=== PATIENT | female | born 1995 | race Caucasian/White ===

== ENCOUNTER 2019-04-30 11:22 | Emergency (ER) | payer SELFPAY ==
--- OUTSIDE RECORDS SUMMARY | 2019-04-30 11:24 | XMS REPORT ---
:1995 [facility] Address [address] [place] [address] [address]. [address] [place] [address] Care Team Providers Name Role Phone Unavailable Unavailable Unavailable Payers Payer Name Policy Type Policy Number Effective Date Expiration Date Problems This patient has no known problems. Allergies, Adverse Reactions, Alerts Allergy Allergy Status Severity Reaction(s) Onset Inactive Treating Comments Name Type Date Date Clinician latex DA Active MO 2016-12 00:00:0 0 Medications This patient has no known medications. Results Test Description Test Time Test Comments Text Results Atomic Results Result Comments - CT ABD PELVIS W/CONT 2019-01-24 20:46:00 Name: LADI ARMSTRONG [facility] : 1995 Age/S: 23 / F [address] Unit #: [id number] Loc: [place] [address] Phys: Cornelius Mullins MD Acct: [id number] Dis Date: Status: REG ER PHONE #: [phone] Exam Date: 01/24/20192039 FAX #: Reason: epigastric, RUQ pain/tenderness EXAMS: CPT: [id number] CT ABD PELVIS W/CONT 96259 Location of dictation: B2 CT of the abdomen and pelvis with intravenous contrast CLINICAL HISTORY: Pain, nausea vomiting and diarrhea Contrast -100 mL of Isovue-300 IV contrast was given. No oral contrast was given Contrast phase - abdomen and pelvis including all of kidneys Reconstructions - coronal and sagittal planes GFR greater than 60 Automated exposure reduction (Auto mA/Smart mA) was utilized in compliance with ACR Image Wisely with DLP of 1329.9 mGy-cm. COMPARISON: None FINDINGS: Thoracic: Included images of the lower chest demonstrate no abnormalities. Hepatobiliary: Fatty liver with no focal mass. Gallbladder: Appears normal without biliary dilatation. Pancreas: Normal. Spleen: Normal. Adrenals: Normal. Genitourinary: The kidneys are normal. There is no evidence of hydronephrosis of either kidney. There is no evidence of renal calculus. The bladder is intact. Gastrointestinal: Moderate constipation. Normal appendix with no inflammatory change, small bowel obstruction or free air. The abdominal wall is intact. Retroperitoneum and pelvis: No adnexal mass, free fluid or fluid collection. Bladder is unremarkable. Bones and soft tissues: Intact with no focal findings. IMPRESSION: Unremarkable CT of the abdomen and pelvis with contrast. PAGE 1 Signed Report (CONTINUED) Name: LADI ARMSTRONG : 1995 Age/S: 23 / F [address] Unit #: [id number] Loc: [place] [address] Phys: Cornelius Mullins MD Acct: [id number] Dis Date: Status: REG ER PHONE #: [phone] Exam Date: 01/24/20192039 FAX #: Reason: epigastric, RUQ pain/tenderness EXAMS: CPT: [id number] CT ABD PELVIS W/CONT 25090 <Continued> at 2045 Reported and signed by: Aline Hurst M.D. CC: Slick Osman MD Technologist:Elham Crisostomo, RT(R)(CT); . CTDI: DLP: Trnscb Date/Time: 01/24/2019 (2045) [email or web address] Orig Print D/T: S: 01/24/2019 (2048) CTDI: DLP: PAGE 2 Signed Report - US ABDOMEN LTD 2019-01-24 20:32:00 Name: LADI ARMSTRONG : 1995 Age/S: 23 / F [address] Unit #: [id number] Loc: [place] [address] Phys: Cornelius Mullins MD Acct: [id number] Dis Date: Status: REG ER PHONE #: [phone] Exam Date: 01/24/20192015 FAX #: Reason: abdominal pain EXAMS: CPT: [id number] US ABDOMEN LTD [id number] Location: T 18 RUQ sonogram, 01/24/19 COMPARISON EXAM: None of the abdomen. CLINICAL HISTORY: Abdominal pain and flank pain. No gallstones or gallbladder wall thickening seen. No ascites is seen. Questionable tiny amount of gallbladder sludge. The technologist does however states that the patient does exhibit a positive Tobias's sonographic sign. Gallbladder is normal in size. No biliary distention is seen. The CBD measures 2.9 mm. The right kidney is unremarkable. Liver is normal in size and echogenicity without abnormal mass. The retroperitoneal structures are grossly unremarkable. IMPRESSION: Questionable tiny amount of gallbladder sludge with positive Tobias's sign exhibit sonographically. No appreciable gallstones are seen. HIDA scan may prove helpful for further assessment with calculation of ejection fraction given findings noted. No significant biliary distention at 2031 Reported and signed by: Silva Kaiser M.D. CC: Slick Osman MD Technologist: Danisha Maceod Trnscb Date/Time: 01/24/2019 (2031) [id number] PAGE 1 Signed Report Name: LADI ARMSTRONG [facility] : 1995 Age/S: 23 / F [address] Unit #: [id number] Loc: [place] [address] Phys: Cornelius Mullins MD Acct: [id number] Dis Date: Status: REG ER PHONE #: [phone] Exam Date: 01/24/20192015 FAX #: Reason: abdominal pain EXAMS: CPT: [id number] ABDOMEN LTD [id number] <Continued> Orig Print D/T: S: 01/24/2019 (2035) Probe: PAGE 2 Signed Report BASIC METABOLIC PANEL 2019-01-24 20:09:00 Test Item Value Reference Range Comments SODIUM (test code=NA) 137 mmol/L 134-147 POTASSIUM (test code=K) 4.3 mmol/L 3.4-5.0 CHLORIDE (test code=CL) 106 mmol/L 100-108 CARBON DIOXIDE (test code=CO2) 26 mmol/L 21-32 ANION GAP (test code=GAP) 5.0 GAP calc 4.0-15.0 GLUCOSE (test code=GLU) 89 MG/DL 70-110 BLOOD UREA NITROGEN (test code=BUN) 9 MG/DL 7-18 GLOMERULAR FILTRATION RATE (test code=GFR) >=60 max estimate estGFR >60 CREATININE (test code=CREAT) 0.8 MG/DL 0.6-1.0 CALCIUM (test code=CA) 9.0 MG/DL 8.5-10.1 HEPATIC FUNCTION [id number] 20:09:00 Test Item Value Reference Range Comments TOTAL PROTEIN (test code=PROT) 7.8 G/DL 6.4-8.2 ALBUMIN (test code=ALB) 3.4 G/DL 3.4-5.0 BILIRUBIN TOTAL (test code=BILT) 0.10 MG/DL 0.2-1.2 BILIRUBIN DIRECT (test code=BILD) < 0.10 MG/DL 0.00-0.30 BILIRUBIN INDIRECT (test code=BILIND) 0.00 MG/DL 0.2-1.2 SGOT/AST (test code=AST) 17 Unit/L 15-37 SGPT/ALT (test code=ALT) 22 Unit/L 12-78 ALKALINE PHOSPHATASE TOTAL (test code=ALKP) 139 Unit/L 45-117 [id number] 20:09:00 Test Item Value Reference Range Comments LIPASE (test code=LIP) 79 Unit/L 114-286 BASIC METABOLIC [id number] 20:04:00 Test Item Value Reference Range Comments SODIUM (test code=NA) 137 mmol/L 134-147 POTASSIUM (test code=K) 4.3 mmol/L 3.4-5.0 CHLORIDE (test code=CL) 106 mmol/L 100-108 CARBON DIOXIDE (test code=CO2) 26 mmol/L 21-32 ANION GAP (test code=GAP) 5.0 GAP calc 4.0-15.0 GLUCOSE (test code=GLU) 89 MG/DL 70-110 BLOOD UREA NITROGEN (test code=BUN) 9 MG/DL 7-18 GLOMERULAR FILTRATION RATE (test code=GFR) estGFR >60 CREATININE (test code=CREAT) MG/DL 0.6-1.0 CALCIUM (test code=CA) 9.0 MG/DL 8.5-10.1 HEPATIC FUNCTION [id number] 20:04:00 Test Item Value Reference Range Comments TOTAL PROTEIN (test code=PROT) G/DL 6.4-8.2 ALBUMIN (test code=ALB) G/DL 3.4-5.0 BILIRUBIN TOTAL (test code=BILT) MG/DL 0.2-1.2 BILIRUBIN DIRECT (test code=BILD) MG/DL 0.00-0.30 BILIRUBIN INDIRECT (test code=BILIND) MG/DL 0.2-1.2 SGOT/AST (test code=AST) Unit/L 15-37 SGPT/ALT (test code=ALT) Unit/L 12-78 ALKALINE PHOSPHATASE TOTAL (test code=ALKP) Unit/L 45-117 [id number] 20:04:00 Test Item Value Reference Range Comments LIPASE (test code=LIP) 79 Unit/L 114-286 CBC W/AUTO [id number] 19:53:00 Test Item Value Reference Range Comments WHITE BLOOD CELL (test code=WBC) 9.7 K/mm3 3.5-11.0 RED BLOOD CELL (test code=RBC) 4.38 M/mm3 4.70-6.10 HEMOGLOBIN (test code=HGB) 12.9 G/DL 10.4-14.9 HEMATOCRIT (test code=HCT) 39.2 % 31.5-44.1 MEAN CELL VOLUME (test code=MCV) 89.5 Fl 84.5-98.6 MEAN CELL HGB (test code=MCH) 29.5 pg 27.0-34.2 MEAN CELL HGB CONCETRATION (test code=MCHC) 32.9 G/DL 31.5-34.0 RED CELL DISTRIBUTION WIDTH (test code=RDW) 14.7 SD 11.5-14.5 PLATELET COUNT (test code=PLT) 434.0 K/mm3 150-450 MEAN PLATELET VOLUME (test code=MPV) 8.20 fL 7.0-10.5 NEUTROPHIL % (test code=NT%) 57.3 % 40-76 LYMPHOCYTE % (test code=LY%) 31.8 % 20.5-51.1 MONOCYTE % (test code=MO%) 8.9 % 1.7-9.3 EOSINOPHIL % (test code=EO%) 1.7 % 0.0-6.0 BASOPHIL % (test code=BA%) 0.3 % 0.0-2.0 NEUTROPHIL # (test code=NT#) 5.53 K/mm3 1.8-7.6 LYMPHOCYTE # (test code=LY#) 3.1 K/mm3 0.6-3.2 MONOCYTE # (test code=MO#) 0.9 K/mm3 0.3-1.1 EOSINOPHIL # (test code=EO#) 0.2 K/mm3 0.0-0.4 BASOPHIL # (test code=BA#) 0.0 K/mm3 0.0-0.1 MANUAL DIFF REQUIRED (test code=MDIFF) NO DIFF/SCN CRITERIA URINALYSIS [id number] 19:42:00 Test Item Value Reference Range Comments UA GLUCOSE DIPSTICK (test code=DGLUU) NEGATIVE mg/dL NEG UA BILIRUBIN DIPSTICK (test code=BILU) NEGATIVE mg/DL (NEG) 0 UA KETONE DIPSTICK (test code=KETU) NEGATIVE mg/DL (NEG) 0 UA SPECIFIC GRAVITY (test code=SGU) 1.005 SG 1.005-1.030 UA BLOOD DIPSTICK (test code=AJITH) NEGATIVE Ruel/mcL (NEG) 0 UA PH DIPSTICK (test code=CARLOS) 7.0 pH UNITS 5.0-7.0 UA PROTEIN DIPSTICK (test code=PROU) NEG mg/DL <30 UA UROBILINIOGEN DIPSTICK (test code=URO) NORMAL mg/DL (NORM) <2.0 UA NITRITE DIPSTICK (test code=TABBY) NEGATIVE SCREEN NEG UA LEUKOCYTE ESTERASE DIPSTICK (test NEGATIVE Leuk/mcL (NEG) 0 code=LEUU) Urine Specimen Type: Clean Catch
[2019-04-30 12:21] LABS: Urine Blood 1+ (NEG); Urine Glucose NEGATIVE (NEG); Urine Protein NEGATIVE (NEG); Urine Specific Gravity 1.015 (1.005-1.030)
[2019-04-30] MEDS ORDERED: NA CHLORIDE 0.9% 1,000 ML ONE (12:21)
[2019-04-30] MEDS ORDERED: FAMOTIDINE 20 MG/2 ML VIAL IV ONE (12:21)
[2019-04-30] MEDS ORDERED: ONDANSETRON 4 MG/2 ML VIAL ONE ×2 (12:21→14:51)
[2019-04-30 12:37] LABS: Absolute Lymphocytes (CBC) 2.9 K/uL (0.7-4.9); Basophils % 0.8 % (0-1.3); Hematocrit 37.4 % (36.0-45.0); Lymphocytes % 48.2 % (15.3-44.8); MPV 7.3 fL (7.6-11.3); RBC Red Blood Cell Count 4.22 M/uL (3.86-4.86)
[2019-04-30 12:45] LABS: Urine Bacteria <20 /HPF (<20)
[2019-04-30 12:46] LABS: Urine Culture Reflex Order REFLEXED
[2019-04-30 12:58] LABS: ALT/SGPT 32 U/L (12-78); AST/SGOT 18 U/L (15-37); Albumin 3.7 g/dL (3.4-5.0); Alkaline Phosphatase 109 U/L (45-117); BUN Blood Urea Nitrogen 9 mg/dL (7-18); Bicarbonate 25 mmol/L (21-32); Bilirubin Direct < 0.1 mg/dL (0-0.2); Bilirubin Total 0.3 mg/dL (0.2-1.0); Glucose Level 103 mg/dL (74-106); Lipase 54 U/L (73-393); Potassium 3.8 mmol/L (3.5-5.1); Protein, Total 7.6 g/dL (6.4-8.2); Sodium Level 141 mmol/L (136-145)
[2019-04-30 13:07] LABS: HCG, Quantitative < 1 mIU/mL (1-3)
[2019-04-30] MEDS ORDERED: ACETAMINOPHEN 500 MG TAB ONE (13:23)
[2019-04-30] MEDS ORDERED: KETOROLAC 30 MG/ML INJ ONE (14:51)
--- NOTE | 2019-04-30 16:28 | RAD REPORT ---
EXAM DESCRIPTION: US - Transvaginal Study Probe - 04/30/2019 3:45 pm CLINICAL HISTORY: ICD N92.5 heavy menses COMPARISON: none FINDINGS: The uterus measures 6 x 3 x 4cm. A fibroid is not seen. The endometrial stripe measures 7 millimeters. Nabothian cyst cervix The ovaries are normal in size and echotexture. Many follicles are present within the right ovary. Right and left at adnexa unremarkable. No significant free fluid is seen. IMPRESSION: Right ovary contains many follicles which can be seen with polycystic ovarian syndrome. Otherwise unremarkable exam
--- NOTE | 2019-04-30 16:44 | ER ---
Nurse's Notes [facility] [place] Name: Luciana Freeman Age: 24 yrs Sex: Female : 1995 Arrival Date: 04/30/2019 Time: 11:23 Bed 13 Private MD: Javi Shukla S Diagnosis: Abdominal and pelvic pain Presentation: 04/30 11:28 Presenting complaint: Patient states: "I havent been able to keep down food or water aj1 since Thursday. I've been nauseous and Zofran isn't helping. My concern is I've taken 6 tests, half were positive and half were negative. I'm having pain on my left side, and I have a history of ectopic pregnancies" Patient reports lower left abdominal pain and light vaginal bleeding. Transition of care: patient was not received from another setting of care. Onset of symptoms was April 2019. Risk Assessment: Do you want to hurt yourself or someone else? Patient reports no desire to harm self or others. Initial Sepsis Screen: Does the patient meet any 2 criteria? No. Patient's initial sepsis screen is negative. Does the patient have a suspected source of infection? No. Patient's initial sepsis screen is negative. Care prior to arrival: None. 11:28 Method Of Arrival: Ambulatory aj1 11:28 Acuity: ROSMERY 3 aj1 Triage Assessment: 11:31 General: Appears in no apparent distress. uncomfortable, Behavior is calm, cooperative, aj1 appropriate for age. Pain: Complains of pain in left inguinal area Pain currently is 9 out of 10 on a pain scale. Neuro: Level of Consciousness is awake, alert, obeys commands. Cardiovascular: Patient's skin is warm and dry. Respiratory: Airway is patent Respiratory effort is even, unlabored, Respiratory pattern is regular, symmetrical. GI: Reports lower abdominal pain, nausea, vomiting. : Reports vaginal bleeding that is light flow. 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 - Social history:: Smoking status: Patient/guardian denies using tobacco. - Ebola Screening: : Patient denies travel to an Ebola-affected area in the 21 days before illness onset. Screenin:35 Abuse screen: Denies threats or abuse. Nutritional screening: No deficits noted. rb1 Tuberculosis screening: No symptoms or risk factors identified. Fall Risk None identified. Assessment: 11:35 General: Appears in no apparent distress. comfortable, obese, Behavior is calm, rb1 cooperative. Pain: Complains of pain in left inguinal area Pain currently is 9 out of 10 on a pain scale. Neuro: Level of Consciousness is awake, alert, obeys commands, Oriented to person, place, time, situation. Cardiovascular: Capillary refill < 3 seconds is brisk in bilateral fingers. Respiratory: Airway is patent Respiratory effort is even, unlabored, Respiratory pattern is regular, symmetrical. GI: Reports nausea, vomiting, since Thursday. : No signs and/or symptoms were reported regarding the genitourinary system. Derm: Skin is pink, warm \\T\\ dry. 12:30 Reassessment: Patient appears in no apparent distress at this time. No changes from rb1 previously documented assessment. 13:30 Reassessment: Patient appears in no apparent distress at this time. Patient and/or rb1 family updated on plan of care and expected duration. Pain level reassessed. Patient is alert, oriented x 3, equal unlabored respirations, skin warm/dry/pink. Grandmother at bedside. 14:30 Reassessment: Patient appears in no apparent distress at this time. No changes from rb1 previously documented assessment. 15:30 Reassessment: Patient appears in no apparent distress at this time. Patient and/or rb1 family updated on plan of care and expected duration. Pain level reassessed. Patient is alert, oriented x 3, equal unlabored respirations, skin warm/dry/pink. Family at bedside. 16:30 Reassessment: Patient appears in no apparent distress at this time. No changes from rb1 previously documented assessment. 17:00 Reassessment: Patient appears in no apparent distress at this time. Patient and/or rb1 family updated on plan of care and expected duration. Pain level reassessed. Patient is alert, oriented x 3, equal unlabored respirations, skin warm/dry/pink. Vital Signs: 11:31 BP 138 / 94; Pulse 75; Resp 18; Temp 97.5; Pulse Ox 98% on R/A; Weight 122.47 kg (R); aj1 Height 5 ft. 3 in. (160.02 cm) (R); Pain 9/10; 12:30 BP 116 / 103; Pulse 70; Resp 17; Temp 97.9(TE); Pulse Ox 97% on R/A; Pain 9/10; rb1 13:30 BP 103 / 68; Pulse 67; Resp 18; Temp 98.0(O); Pulse Ox 97% on R/A; Pain 9/10; rb1 14:30 BP 118 / 73; Pulse 69; Resp 17; Temp 98.1(O); Pulse Ox 99% on R/A; Pain 8/10; rb1 15:30 BP 114 / 68; Pulse 67; Resp 16; Temp 98.4(O); Pulse Ox 100% on R/A; Pain 7/10; rb1 16:28 BP 117 / 71; Pulse 68; Resp 17; Temp 98.2(O); Pulse Ox 99% on R/A; Pain 5/10; rb1 11:31 Body Mass Index 47.83 (122.47 kg, 160.02 cm) aj1 ED Course: 11:23 Patient arrived in ED. as 11:24 Javi Shukla MD is Private Physician. as 11:30 Triage completed. aj1 11:31 Arm band placed on Patient placed in an exam room. aj1 11:34 Mor Romo PA is PHCP. cp 11:34 Mor Delarosa MD is Attending Physician. cp 11:35 Patient has correct armband on for positive identification. Bed in low position. Call rb1 light in reach. Side rails up X 1. Pulse ox on. NIBP on. Warm blanket given. 12:01 Magdalena Vallejo, JAZZMINE is Primary Nurse. rb1 12:15 Inserted saline lock: 22 gauge in left antecubital area, using aseptic technique. Blood rb1 collected. 15:43 Ultrasound completed. Patient tolerated well. sg3 15:47 US Transvaginal Study (Probe) In Process Unspecified. EDMS 16:41 Bj Parr MD is Referral Physician. cp 17:10 No provider procedures requiring assistance completed. IV discontinued, intact, rb1 bleeding controlled, No redness/swelling at site. Pressure dressing applied. Administered Medications: 12:15 Drug: Zofran 4 mg Route: IVP; Site: left antecubital; rb1 12:30 Follow up: Response: No adverse reaction; Nausea is decreased rb1 12:15 Drug: Pepcid 20 mg Route: IVP; Site: left antecubital; rb1 12:30 Follow up: Response: No adverse reaction rb1 12:15 Drug: NS 0.9% 1000 ml Route: IV; Rate: 1 bolus; Site: left antecubital; rb1 13:15 Follow up: IV Status: Completed infusion rb1 13:09 Drug: Tylenol 1000 mg Route: PO; rb1 13:38 Follow up: Response: No adverse reaction; Pain is unchanged, physician notified rb1 14:40 Drug: TORadol 30 mg Route: IVP; Site: left antecubital; rb1 14:55 Follow up: Response: No adverse reaction; Pain is decreased; Pain 7/10 rb1 14:40 Drug: Zofran 4 mg Route: IVP; Site: left antecubital; rb1 14:55 Follow up: Response: No adverse reaction; Nausea is decreased rb1 17:00 Drug: Rocephin - (cefTRIAXone) 1 grams Route: IVPB; Infused Over: 30 mins; Site: left rb1 antecubital; 17:30 Follow up: Response: No adverse reaction; IV Status: Completed infusion rb1 Intake: Outcome: 16:42 Discharge ordered by MD. cp 17:10 Patient left the ED. rb1 17:10 Discharged to home ambulatory. rb1 17:10 Condition: stable 17:10 Discharge instructions given to patient, Instructed on discharge instructions, follow up and referral plans. medication usage, Demonstrated understanding of instructions, follow-up care, medications, Prescriptions given X x 5 Signatures: Dispatcher [employer] Cassi Parmar RN RN Luci Escamilla Corey, PA PA cp Magdalena Vallejo RN RN rb1 Grisel Butts sg3 Corrections: (The following items were deleted from the chart) 18:33 18:32 Patient left the ED. rb1 rb1
--- NOTE | 2019-04-30 16:44 | EDPHYS ---
Physician Documentation [facility] Name: Luciana Freeman Age: 24 yrs Sex: Female : 1995 Arrival Date: 04/30/2019 Time: 11:23 Bed 13 Private MD: Javi Shukla S ED Physician Mor Delarosa HPI: 04/30 11:35 This 24 yrs old Female presents to ER via Ambulatory with complaints of cp Vomiting, Vaginal Bleeding - poss preg, Abdominal Pain. 11:35 The patient presents to the emergency department with nausea, that is moderate, cp vomiting, that is intermittent, abdominal pain, of the left lower abdominal area. 11:35 Onset: The symptoms/episode began/occurred 5 day(s) ago. Possible causes: . cp Associated signs and symptoms: Pertinent positives: vaginal spotting, Pertinent negatives: constipation, diarrhea, fever, GI bleeding. Severity of symptoms: in the emergency department the symptoms are unchanged despite home interventions. 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 - Social history:: Smoking status: Patient/guardian denies using tobacco. - Ebola Screening: : Patient denies travel to an Ebola-affected area in the 21 days before illness onset. ROS: 11:45 Constitutional: Negative for body aches, chills, fever, poor PO intake. cp 11:45 Eyes: Negative for injury, pain, redness, and discharge. cp 11:45 ENT: Negative for drainage from ear(s), ear pain, sore throat, difficulty swallowing, difficulty handling secretions. 11:45 Cardiovascular: Negative for chest pain, palpitations. 11:45 Respiratory: Negative for cough, shortness of breath, wheezing. 11:45 Abdomen/GI: Positive for abdominal pain, of the left lower quadrant, Negative for vomiting, diarrhea, constipation, anorexia, black/tarry stool, rectal bleeding. 11:45 Back: Negative for injury or acute deformity, pain at rest, pain with movement. 11:45 : Positive for vaginal bleeding, vaginal discharge, Negative for urinary symptoms. 11:45 Skin: Negative for cellulitis, rash. 11:45 Neuro: Negative for altered mental status, weakness. 11:45 All other systems are negative. Exam: 11:50 Constitutional: The patient appears in no acute distress, alert, awake, non-toxic, well cp developed, well nourished, obese. 11:50 Head/Face: Normocephalic, atraumatic. cp 11:50 Eyes: Periorbital structures: appear normal, Conjunctiva: normal, no exudate, no injection, Lids and lashes: appear normal, bilaterally. 11:50 ENT: External ear(s): are unremarkable, Nose: is normal, Mouth: Lips: moist, Oral mucosa: pink and intact, moist, Posterior pharynx: is normal, airway is patent, no erythema, no exudate. 11:50 Chest/axilla: Inspection: normal, Palpation: is normal, no crepitus, no tenderness. 11:50 Cardiovascular: Rate: normal, Rhythm: regular. 11:50 Respiratory: the patient does not display signs of respiratory distress, Respirations: normal, no use of accessory muscles, no retractions, no splinting, no tachypnea, labored breathing, is not present, Breath sounds: are clear throughout, no decreased breath sounds, no stridor, no wheezing. 11:50 Abdomen/GI: Inspection: abdomen appears normal, Bowel sounds: active, all quadrants, Palpation: soft, in all quadrants, moderate abdominal tenderness, in the left adnexal area, rebound tenderness, is not appreciated, voluntary guarding, is elicited in the left lower quadrant. 11:50 Back: ROM is normal. 11:50 Skin: no rash present. 14:15 : Pelvic Exam: External exam: is normal, Speculum exam: no bleeding is noted, no cp cervicitis, os that is closed, no tissue in cervix is seen, no tissue in vagina is seen, bimanual exam reveals cervical motion tenderness, left adnexal tenderness, no adnexal mass on right, no adnexal mass on left, discharge, white, the audiometric technician was present for the exam. Vital Signs: 11:31 BP 138 / 94; Pulse 75; Resp 18; Temp 97.5; Pulse Ox 98% on R/A; Weight 122.47 kg (R); aj1 Height 5 ft. 3 in. (160.02 cm) (R); Pain 9/10; 12:30 BP 116 / 103; Pulse 70; Resp 17; Temp 97.9(TE); Pulse Ox 97% on R/A; Pain 9/10; rb1 13:30 BP 103 / 68; Pulse 67; Resp 18; Temp 98.0(O); Pulse Ox 97% on R/A; Pain 9/10; rb1 14:30 BP 118 / 73; Pulse 69; Resp 17; Temp 98.1(O); Pulse Ox 99% on R/A; Pain 8/10; rb1 15:30 BP 114 / 68; Pulse 67; Resp 16; Temp 98.4(O); Pulse Ox 100% on R/A; Pain 7/10; rb1 16:28 BP 117 / 71; Pulse 68; Resp 17; Temp 98.2(O); Pulse Ox 99% on R/A; Pain 5/10; rb1 11:31 Body Mass Index 47.83 (122.47 kg, 160.02 cm) aj1 MDM: 11:34 Patient medically screened. cp 12:00 Differential diagnosis: gastritis, appendicitis, ovarian cyst, PID, UTI, ureteral stone.cp 16:40 Data reviewed: vital signs, nurses notes, lab test result(s), radiologic studies, plain cp films, and as a result, I will discharge patient. Counseling: I had a detailed discussion with the patient and/or guardian regarding: the historical points, exam findings, and any diagnostic results supporting the discharge/admit diagnosis, lab results, radiology results, to return to the emergency department if symptoms worsen or persist or if there are any questions or concerns that arise at home. Response to treatment: the patient's symptoms have markedly improved after treatment. 04/30 11:55 Order name: Basic Metabolic Panel; Complete Time: 13:34 cp 04/30 16:07 Interpretation: Normal except: CL 108; GFR 79. cp 04/30 11:55 Order name: CBC with Diff; Complete Time: 12:50 cp 04/30 12:49 Interpretation: Normal except: MCV 88.6; PLT 407; MPV 7.3; LYM% 48.2. 04/30 11:55 Order name: Creatinine for Radiology; Complete Time: 13:34 04/30 11:55 Order name: Hepatic Function; Complete Time: 13:34 04/30 11:55 Order name: Lipase; Complete Time: 13:34 04/30 11:55 Order name: Quantitative Hcg; Complete Time: 13:34 04/30 11:55 Order name: Abo/rh Typing; Complete Time: 16:07 04/30 12:13 Order name: Urine Dipstick--Ancillary (enter results); Complete Time: 12:23 em 04/30 12:23 Interpretation: Normal except: UBLD 1+; UESTR TRACE. 04/30 12:13 Order name: Urine --Ancillary (enter results); Complete Time: 12:23 em 04/30 12:49 Interpretation: Reviewed. 04/30 12:13 Order name: Urine Microscopic Only; Complete Time: 12:50 em 04/30 12:49 Order name: Urine Culture [facility] 04/30 13:35 Order name: US Transvaginal Study (Probe); Complete Time: 16:32 04/30 13:53 Order name: Wet Prep; Complete Time: 16:08 04/30 11:35 Order name: Urine Dipstick-Ancillary (obtain specimen); Complete Time: 12:11 04/30 11:35 Order name: Urine Test (obtain specimen); Complete Time: 12:11 04/30 11:55 Order name: IV Saline Lock; Complete Time: 12:29 04/30 11:55 Order name: Labs collected and sent; Complete Time: 12:29 04/30 11:55 Order name: NPO; Complete Time: 12:51 04/30 13:53 Order name: Pelvic Exam Setup; Complete Time: 14:27 cp Administered Medications: 12:15 Drug: Zofran 4 mg Route: IVP; Site: left antecubital; rb1 12:30 Follow up: Response: No adverse reaction; Nausea is decreased rb1 12:15 Drug: Pepcid 20 mg Route: IVP; Site: left antecubital; rb1 12:30 Follow up: Response: No adverse reaction rb1 12:15 Drug: NS 0.9% 1000 ml Route: IV; Rate: 1 bolus; Site: left antecubital; rb1 13:15 Follow up: IV Status: Completed infusion rb1 13:09 Drug: Tylenol 1000 mg Route: PO; rb1 13:38 Follow up: Response: No adverse reaction; Pain is unchanged, physician notified rb1 14:40 Drug: TORadol 30 mg Route: IVP; Site: left antecubital; rb1 14:55 Follow up: Response: No adverse reaction; Pain is decreased; Pain 7/10 rb1 14:40 Drug: Zofran 4 mg Route: IVP; Site: left antecubital; rb1 14:55 Follow up: Response: No adverse reaction; Nausea is decreased rb1 17:00 Drug: Rocephin - (cefTRIAXone) 1 grams Route: IVPB; Infused Over: 30 mins; Site: left rb1 antecubital; 17:30 Follow up: Response: No adverse reaction; IV Status: Completed infusion rb1 Disposition: 05/01 11:13 Co-signature as Attending Physician, Mor Delarosa MD I agree with the assessment and irene plan of care. Disposition: 04/30/19 16:42 Discharged to Home. Impression: Abdominal and pelvic pain. - Condition is Stable. - Discharge Instructions: Pelvic Pain, Female. - Prescriptions for ketoprofen 75 mg Oral capsule - take 1 capsule by ORAL route every 8 hours as needed; 30 capsule. Doxycycline Hyclate 100 mg Oral Tablet - take 1 tablet by ORAL route every 12 hours; 20 tablet. Metronidazole 500 mg Oral Tablet - take 1 tablet by ORAL route every 8 hours; 30 tablet. Zofran 4 mg Oral Tablet - take 1 tablet by ORAL route every 12 hours As needed; 20 tablet. promethazine 25 mg Oral Tablet - take 1 tablet by ORAL route every 6 hours As needed; 20 tablet. - Medication Reconciliation Form, Thank You Letter, Antibiotic Education, Prescription Opioid Use, Work release form form. - Follow up: Bj Parr MD; When: 1 week; Reason: Recheck today's complaints. - Problem is new. - Symptoms have improved. Signatures: Dispatcher [employer] EDCassi Rainey RN RN Mor Wills MD MD cha Page, Corey, PA PA Magdalena Carr, RN RN rb1 Corrections: (The following items were deleted from the chart) 04/30 18:32 16:42 04/30/2019 16:42 Discharged to Home. Impression: Abdominal and pelvic pain. rb1 Condition is Stable. Forms are Medication Reconciliation Form, Thank You Letter, Antibiotic Education, Prescription Opioid Use. Follow up: Bj Parr; When: 1 week; Reason: Recheck today's complaints. Problem is new. Symptoms have improved. cp
[2019-04-30] MEDS ORDERED: CEFTRIAXONE/SWI 1gm 1 GM/10 ML SYR ONE (17:11)
== END 2019-04-30 18:32 | disposition home or self-care (01) ==
LOC: ER 11:22
DX: R10.2 Pelvic and perineal pain (principal); Z91.040 Latex allergy status; Z91.048 Other nonmedicinal substance allergy status
CPT/HCPCS: 36415; 76830; 80048; 80076; 81003; 81015; 81025; 83690; 84702; 85025; 86900; 86901; 87086; 87088; 87210; 96361; 96365; 96375; 99284; J0696; J2405; J7030